=== PATIENT | female | born 1955 | race Caucasian/White ===

== ENCOUNTER 2018-07-09 08:54 | Day surgery (SDC) | payer OTHER ==
[~2018-07-09 08:54] MED LIST: ASPIR 8181 MG PO; ATORVASTATIN CA40 MG PO; FOLIC ACID1 MG PO; IRBESARTAN-HCT1 EACH PO
== END 2018-07-09 13:40 | disposition home or self-care (01) ==
LOC: AMB-ENDOS 08:54
DX: K57.32 Diverticulitis of large intestine without perforation or abscess without bleeding (principal)